=== PATIENT | female | born 1960 | race Caucasian/White ===

== ENCOUNTER 2018-01-04 16:34 | Emergency (ER) | payer MEDICARE, OTHER ==
[~2018-01-04] VITALS: Ht 170.2 cm; Wt 72.6 kg
[~2018-01-04 16:34] MED LIST: AMITRIPTYLINE H50 MG PO; CALCIUM 500+D1 EACH PO; CALCIUM600 MG; DICLOFENAC SODI50 MG PO; GABAPENTIN600 MG PO; MELOXICAM7.5 MG PO; MULTI-VITAMIN1 EACH PO; NEXIUM40 M1; OMEPRAZOLE40 MG PO; SERTRALINE HCL50 MG PO; ULTRAM50 MG PO
--- OUTSIDE RECORDS SUMMARY | 2018-01-04 16:37 | XMS REPORT | Clinical Summary ---
Author Author [facility] Organization [facility] Address Unknown Phone Unavailable Care Team Providers [employer] Sales [employer] Service Manager Name Role Phone Jeanne Manriquez MD PCP Allergies Active Allergy Reactions Severity Noted Date Comments Hydromorphone 12/04/2017 Current Medications Prescription Sig. Disp. Refills Start End Date Status Date MV-MIN/IRON/FOLIC/CALCIUM Take by mouth. Active /VITK (WOMEN'S MULTIVITAMIN ORAL) gabapentin (NEURONTIN) Take 600 mg by mouth 3 Active 600 mg tablet (three) times a day. One tablet three times a day traMADol (ULTRAM) 50 mg Take 50 mg by mouth every Active tablet 6 (six) hours as needed for moderate pain. 1 tab twice a day diclofenac (VOLTAREN) 50 Take 50 mg by mouth 2 Active MG EC tablet (two) times a day. 1 tablet twice a day omeprazole (PriLOSEC) 20 Take 20 mg by mouth Active MG capsule daily. ibuprofen (ADVIL,MOTRIN) Take 800 mg by mouth Active 800 MG tablet every 6 (six) hours as needed for mild pain. sertraline (ZOLOFT) 50 MG Take 50 mg by mouth Active tablet daily. amitriptyline (ELAVIL) 50 Take 50 mg by mouth Active MG tablet nightly. tiZANidine (ZANAFLEX) 2 TAKE 1 TABLET BY MOUTH 180 tablet 4 12/10/19 Active MG tablet EVERY NIGHT AT BEDTIME 18 FOR 3 DAYS, THEN 2 TABLET BY MOUTH EVERY NIGHT AT BEDTIME TO CONTINUE methocarbamol 1 pill po at night x3 60 tablet 4 12/05/19 12/06/19 Discontin (ROBAXIN-750) 750 MG days, then 2pill PO at 18 18 ued tablet night to continue tiZANidine (ZANAFLEX) 2 Take 1 tablet PO at night 60 tablet 4 12/06/19 Discontin MG tablet x3 days and then 2 18 18 ued tablets PO at night to continue. Active Problems Problem Noted Date Cervicogenic headache 12/04/2017 Encounters Date Type Specialty Care Team Description 12/09/2017 Telephone Neurology Kathryn Xavier MA 12/05/2017 Refill Neurology Lizzie Herrmann MD 12/05/2017 Telephone Neurology Kathryn Xavier MA 12/05/2017 Telephone Neurology Kathryn Xavier MA 12/04/2017 Office Visit Neurology Lizzie Herrmann MD Cervicogenic headache (Primary Dx) after 01/03/2017 Family History Medical History Relation Name Comments Alzheimer's disease Father Heart disease Father Hypertension Father Stroke Father Diabetes Mother Migraines Mother Stroke Mother Relation Name Status Comments Father Mother Alive Social History Tobacco Use Types Packs/Day Years Used Date Current Every Day Smoker Cigarettes 1.5 40 Smokeless Tobacco: Never Used Alcohol Use Drinks/Week oz/Week Comments Yes 6 Glasses of 3.6 wine Sex Assigned at Date Recorded Not on file Last Filed Vital Signs Vital Sign Reading Time Taken Blood Pressure 113/79 12/04/2017 10:55 AM CDT Pulse 102 12/04/2017 10:55 AM CDT Temperature - - Respiratory Rate - - Oxygen Saturation - - Inhaled Oxygen - - Concentration Weight 81.2 kg (179 lb) 12/04/2017 10:55 AM CDT Height 167.6 cm (5' 6") 12/04/2017 10:55 AM CDT Body Mass Index 28.89 12/04/2017 10:55 AM CDT Plan of Treatment Date Type Specialty Care Team Description 03/05/2018 Office Visit Neurology Lizzie Herrmann MD [address] [facility] [address] [place] [id number] [phone] Health Maintenance Due Date Last Done Comments PAP SMEAR 1980 COLONOSCOPY 2009 MAMMOGRAM 2009 SHINGRIX VACCINE (#1) 2009 INFLUENZA VACCINE 04/09/2018 Results Not on fileafter 01/03/2017 Insurance Payer Benefit Subscriber ID Type Phone Address Plan / Group MEDICARE MEDICARE xxxxxxxxxx Medicare [place] A AND B [employer] ALLIED/AET xxxxxxxxx PPO NA SIG ADMIN
[2018-01-04] MEDS ORDERED: DEXAMETHASONE SOD PHOS 10 MG/1 ML VIAL INJ ONE (16:45)
[2018-01-04] MEDS ORDERED: DIAZEPAM 2 MG TAB PO ONE ×2 (16:45→18:15)
[2018-01-04] MEDS ORDERED: HYDROCODONE/APAP 10MG-325MG TAB PO ONE (16:45)
[2018-01-04] MEDS ORDERED: KETOROLAC TROMETHAMINE 60 MG/2 ML VIAL IM ONE (17:30)
== END 2018-01-04 19:37 | disposition home or self-care (01) ==
LOC: ER 16:34
DX: M54.2 Cervicalgia (principal); M79.7 Fibromyalgia; Z85.038 Personal history of other malignant neoplasm of large intestine; Z85.830 Personal history of malignant neoplasm of bone
CPT/HCPCS: 99283; J1100; J1885

== ENCOUNTER → 2022-05-23 | Day surgery (SDC) | payer MEDICARE, OTHER ==
[2022-05-22 12:04] LABS: BASOPHILS # (AUTO) 0.1 (0.0-0.1); BASOPHILS % 0.7 % (0.0-1.0); EOSINOPHILS # (AUTO) 0.1 (0.0-0.4); EOSINOPHILS % 1.2 % (0.0-6.0); HEMATOCRIT 43.4 % (34.2-44.1); LYMPHOCYTES # (AUTO) 2.4 (1.0-3.2); LYMPHOCYTES % 35.7 % (18.0-39.1); MEAN CORPUSCULAR HEMOGLOBIN 30.8 pg (28-32); MEAN CORPUSCULAR HGB CONC 32.3 g/dL (31-35); MEAN CORPUSCULAR VOLUME 95.6 fL (81-99); MONOCYTES # (AUTO) 0.6 (0.2-0.8); MONOCYTES % 8.2 % (4.4-11.3); NEUTROPHILS # (AUTO) 3.7 (2.1-6.9); NEUTROPHILS % 54.1 % (38.7-80.0); PLATELET COUNT 237 x10e3/uL (140-360); RED BLOOD COUNT 4.54 x10e6/uL (3.6-5.1); RED CELL DISTRIBUTION WIDTH 12.4 % (11.7-14.4)
[~2022-05-23] MED LIST changes: +ATORVASTATIN CA20 MG PO; +BUPIVACAINE 0.25% 30ML SDV ONE; +DEXAMETHASONE SOD PHOS INJ 4 MG/ML SDV ONE; +EPHEDRINE SULFATE INJ 50 MG/ML VIAL ONE; +FENTANYL CITRATE/PF 100MCG/2 ML INJ ONE; +LIDOCAINE HCL 2% LOCAL INJ 5 ML SDV VIAL INJ ONE; +MELATONIN3 MG PO; +MIDAZOLAM HCL 2 MG/2 ML VIAL ONE; +ONDANSETRON HCL INJ 2MG/ML 2ML 2 MG/ML VIAL ONE; +POVIDONE IODINE 0.05% 0.05 % ML PO ONE; +PROPOFOL IV EMULSION 10 MG/ML 20 ML VIAL ONE; +SEVOFLURANE INHAL SOLN 250 ML PEN BTL ONE; +TURMERIC 500 M1 EACH PO; +VITAMIN B-121000 MCG PO; +VITAMIN C500 MG PO
[2022-05-23 10:05] VITALS: BP 125/76
== END | disposition home or self-care (01) ==
LOC: OR 07:25
PROVIDERS: ATTEND Specialist
DX: S83.282A Other tear of lateral meniscus, current injury, left knee, initial encounter (principal); M17.12 Unilateral primary osteoarthritis, left knee; M23.42 Loose body in knee, left knee; M65.9 Synovitis and tenosynovitis, unspecified; M22.42 Chondromalacia patellae, left knee; E78.5 Hyperlipidemia, unspecified; F32.A Depression, unspecified; F17.200 Nicotine dependence, unspecified, uncomplicated; X58.XXXA Exposure to other specified factors, initial encounter; Z88.6 Allergy status to analgesic agent; Z88.8 Allergy status to other drugs, medicaments and biological substances; Z01.810 Encounter for preprocedural cardiovascular examination; Z01.812 Encounter for preprocedural laboratory examination; Z01.818 Encounter for other preprocedural examination; Z79.899 Other long term (current) drug therapy; Z85.830 Personal history of malignant neoplasm of bone
CPT/HCPCS: 29881; 36415; 71046; 85025; 93005; J0690; J1100; J2001; J2250; J2405; J2704; J3010